=== PATIENT | female | born 1965 | race Caucasian/White ===

== ENCOUNTER 2016-06-10 17:39 | Emergency (ER) | payer SELFPAY ==
[~2016-06-10] VITALS: Ht 152.4 cm; Wt 70.7 kg
[2016-06-10 17:55] VITALS: BP 123/85; PULSE 87; RESP 16; TEMP 98.7; O2SAT 97
[2016-06-10] MEDS ORDERED: VENL150T PO (18:07)
[2016-06-10] MEDS ORDERED: ALPR.25 PO (18:07)
--- NOTE | 2016-06-10 18:27 | PD ---
HPI Chief Complaint: Medication Refill Request Time Seen by Provider: 18:27 Travel History International Travel<30 days: No Contact w/Intl Traveler<30days: No Traveled to known affect area: No History of Present Illness HPI 50-year-old female presents to the emergency department requesting a medication refill of Effexor. Patient states that she ran out of this medication 5 days ago. States that she recently moved to the area from [place] and was told by her doctor that they could not refill her medication from out of state. States she has an appointment with a new PCP 4 days from now. Patient is here requesting a refill because she is having anxiety. She denies any fever, chills , nausea, vomiting, chest pain, shortness of breath. Denies any suicidal or homicidal ideations. No other complaints. PFSH Past Medical History Medical History: Denies Significant Hx Tetanus Vaccination: Unknown Influenza Vaccination: No ?: Not LMP: MENAPAUSE Menopausal: Yes Tubal Ligation: Yes Past Surgical History Section: Yes Social History Alcohol Use: Yes (Socially) Tobacco Use: No Substance Use: No Allergies-Medications (Allergen,Severity, Reaction): Coded Allergies: No Known Allergies (Unverified , 06/10/16) Reported Meds & Prescriptions Reported Meds & Active Scripts Active Venlafaxine ER 24 HR (Venlafaxine HCl) 150 Mg Cap 150 Mg PO DAILY 7 Days Reported Xanax (Alprazolam) 0.25 Mg Tab 0.25 Mg PO HS Venlafaxine ER 24 HR (Venlafaxine HCl) 150 Mg Tab 150 Mg PO DAILY Review of Systems Except as stated in HPI: all other systems reviewed are Neg Physical Exam Narrative GENERAL: Well-nourished and well-developed pleasant female patient in no acute distress who is nontoxic appearing. SKIN: Warm and dry. HEAD: Normocephalic and atraumatic. EYES: No injection, drainage, or hyphema noted. PERRLA. EOMI. ENT: No nasal drainage noted. Oropharynx is clear. NECK: Supple and the trachea is midline. CARDIOVASCULAR: Regular rate and rhythm. RESPIRATORY: Breath sounds are equal bilaterally with no accessory muscle use, wheezing, rhonchi, or crackles. MUSCULOSKELETAL: No obvious deformities, swelling, cyanosis, or ecchymosis is present throughout the upper and lower extremities. Patient has full range of motion without any signs of neurovascular compromise. NEUROLOGICAL: Awake, alert, and oriented. Normal speech and gait. Cranial nerves are grossly intact. Data Data Last Documented VS Vital Signs Date Time Temp Pulse Resp B/P Pulse Ox O2 Delivery O2 Flow Rate FiO2 06/10/16 17:55 98.7 87 16 123/85 97 [facility] Medical Decision Making Medical Screen Exam Complete: Yes Emergency Medical Condition: Yes Differential Diagnosis Medication refill versus anxiety versus depression Narrative Course 50-year-old female presents to the emergency department for medication refill. Patient is afebrile, vital signs are stable. Physical examination is unremarkable. We'll give the patient a 1 week refill of her Effexor. Instructed to keep her appointment with her PCP. Patient verbalizes understanding and agreement with treatment plan. I discussed the case with my attending physician Dr. Carrion who is aware of the patients history, physical examination findings, and treatment plan. Diagnosis Primary Impression: Medication refill Referrals: Primary Care Physician Patient Instructions: General Instructions, Medication Refill, ED Additional Instructions: .Take medication as prescribed. Follow-up with your Primary Care Physician. Return to the ED for any acute worsening of symptoms. Med/Other Pt SpecificInfo: Prescription(s) given Scripts Venlafaxine ER 24 HR 150 Mg [id number] Mg PO DAILY 7 Days Ref 0 Prov:Rhea Carrion MD 06/10/16 Disposition: 01 DISCHARGE HOME Condition: Stable Arline Gustafson Jun 10, 2016 18:27
[2016-06-10] MEDS ORDERED: VENL150C39 PO (18:28)
== END 2016-06-10 18:35 | disposition home or self-care (01) ==
LOC: PHEFT 17:39
DX: F41.9 Anxiety disorder, unspecified (principal); Z76.0 Encounter for issue of repeat prescription
CPT/HCPCS: 99281